=== PATIENT | female | born 1945 | race Hispanic/Latino ===

== ENCOUNTER 2016-07-20 08:16 | Day surgery (SDC) | payer OTHER ==
[2016-07-20 08:54] VITALS: BMI 31.9
[2016-07-20] MEDS ORDERED: Propofol 10 mg/ml Inj (20 ML) ONE ×3 (10:59→11:26)
[2016-07-20] MEDS ORDERED: Lactated Ringer's 500 ML IV ONE (11:00)
[2016-07-20 13:40] VITALS: TEMP 97.5
[2016-07-20 13:48] VITALS: BP 155/60; PULSE 69; RESP 18; O2SAT 98
== END 2016-07-20 12:53 | disposition home or self-care (01) ==
LOC: C.ENDO 08:16
PROVIDERS: ATTEND Internal Medicine Gastroenterology
DX: K29.70 Gastritis, unspecified, without bleeding (principal); K44.9 Diaphragmatic hernia without obstruction or gangrene; K64.8 Other hemorrhoids
CPT/HCPCS: 43239; 45378; 88305; 88313; 88342; J2001; J2704; J7120